=== PATIENT | male | born 1980 | race Caucasian/White ===

== ENCOUNTER 2019-06-26 12:26 | Emergency (ER) | payer OTHER ==
[2019-06-26 12:58] VITALS: BP 130/86; PULSE 72; RESP 18; TEMP 98.2
--- NOTE | 2019-06-26 14:41 | ED ---
General Adult HPI - General Chief complaint: Wound/Laceration Stated complaint: infected toe Time Seen by Provider: 06/26/19 14:12 Source: patient Mode of arrival: ambulatory Limitations: no limitations - History of Present Illness Initial comments: Patient is a 39-year-old male with history of diabetes presenting to emergency Department with a chief complaint of an infection on his big toe. Patient reports he developed a callus few days ago on his left big toe and he used ifdg-dxe-hsrizar acid type medication to remove it. Patient states yesterday he developed erythema that extended proximally along the foot. Patient states today the redness is decreased. Patient reports full range of motion in the left big toe. Patient denies any fevers night sweats or chills. Patient has no history of diabetic ulcers. Patient does have diabetic neuropathy. Patient reports the skin discoloration on the left lower extremity has always been there. Patient denies any foul odor. - Related Data Previous Rx's Medication Instructions Recorded Cephalexin [Keflex] 500 mg PO Q6HR 5 Days #20 cap 06/26/19 Allergies Allergy/AdvReac Type Severity Reaction Status Date / Time No Known Allergies Allergy Verified 06/26/19 12:58 Review of Systems ROS Statement: Those systems with pertinent positive or pertinent negative responses have been documented in the HPI. ROS Other: All systems not noted in ROS Statement are negative. Past Medical History Past Medical History: Diabetes Mellitus History of Any Multi-Drug Resistant Organisms: None Reported Past Surgical History: No Surgical Hx Reported Past Psychological History: No Psychological Hx Reported Smoking Status: Current every day smoker Past Alcohol Use History: None Reported Past Drug Use History: Marijuana General Exam Limitations: no limitations General appearance: alert, in no apparent distress Head exam: Present: atraumatic, normocephalic, normal inspection Eye exam: Present: normal appearance, PERRL, EOMI Pupils: Present: normal accommodation ENT exam: Present: normal exam, mucous membranes moist, normal external ear exam Neck exam: Present: normal inspection, full ROM Respiratory exam: Present: normal lung sounds bilaterally Cardiovascular Exam: Present: regular rate, normal rhythm, normal heart sounds GI/Abdominal exam: Present: soft, normal bowel sounds Extremities exam: Present: full ROM, tenderness (Mild tenderness at the left big toe.), normal capillary refill, other (+2 dorsalis pedis and posterior tibialis bilaterally.). Absent: normal inspection (Skin discoloration in the left lower extremity. Excoriations on the left big toe mild erythema surrounding the excoriation. No drainage noted.) Back exam: Present: normal inspection, full ROM. Absent: CVA tenderness (R), CVA tenderness (L) Neurological exam: Present: alert, oriented X3 Psychiatric exam: Present: normal affect, normal mood Skin exam: Present: warm, intact, normal color Course Vital Signs 06/26/19 12:56 Temperature 98.2 F Pulse Rate 72 Respiratory 18 Rate Blood Pressure 130/86 O2 Sat by Pulse 98 Oximetry Medical Decision Making - Medical Decision Making Patient is a 39-year-old male with history of diabetes presents emergency Department with a chief complaint of an infection of his big toe. Imaging of the left big toe is negative for signs of osteomyelitis and only shows mild soft tissue swelling. This and imaging, history and physical examination suspect the patient to have mild cellulitic changes to his left foot. Patient does repo rt improvement in the erythema from yesterday versus today. Patient does not have any fevers. Patient will be treated with a 5 day course of Keflex. Patient vised to follow-up with a regulation supervisor. Strict return parameters were thoroughly discussed with patient was understanding and agreeable. Case discussed physician. Disposition Clinical Impression: Cellulitis, toe Disposition: HOME SELF-CARE Additional Instructions: Please take prescribed medication as directed. Please follow up with a regulation supervisor. Please return to emergency department if symptoms worsen. Prescriptions: Cephalexin [Keflex] 500 mg PO Q6HR 5 Days #20 cap Is patient prescribed a controlled substance at d/c from ED?: No Referrals: None,Stated [Primary Care Provider] - 1-2 days Time of Disposition: 15:11
--- NOTE | 2019-06-26 14:59 | XR ---
EXAMINATION TYPE: XR foot limited LT DATE OF EXAM: 06/26/2019 CLINICAL HISTORY: Left foot pain in great toe infection TECHNIQUE: Frontal and lateral images of the left foot are obtained. COMPARISON: None FINDINGS: There is no acute fracture/dislocation evident in the left foot. The joint spaces in the left foot appear within normal limits. The overlying soft tissue appears unremarkable. Very small pl aubree and Achilles enthesophytes. Small vessel atherosclerosis. Soft tissue swelling surrounding the first digit and small osteophyte of the distal phalanx of the first digit. No osseous erosion nor cor tical thickening. No subcutaneous emphysema. IMPRESSION: Soft tissue swelling surrounding the right toe of the left foot. No current radiographic sequela of osteomyelitis. No radio opaque foreign body.
== END 2019-06-26 15:20 | disposition home or self-care (01) ==
LOC: EC 12:26
DX: L03.032 Cellulitis of left toe (principal); E11.40 Type 2 diabetes mellitus with diabetic neuropathy, unspecified; F17.200 Nicotine dependence, unspecified, uncomplicated
CPT/HCPCS: 99283